=== PATIENT | male | born 1960 | race Caucasian/White ===

== ENCOUNTER 2019-12-03 16:54 | Emergency (ER) | payer SELFPAY ==
[~2019-12-03] VITALS: Ht 172.7 cm; Wt 78.0 kg
[2019-12-03 17:14] VITALS: BP 136/96
== END 2019-12-03 18:01 | disposition home or self-care (01) ==
LOC: ER 17:00
DX: S39.012A Strain of muscle, fascia and tendon of lower back, initial encounter (principal); V49.49XA Driver injured in collision with other motor vehicles in traffic accident, initial encounter; Y93.89 Activity, other specified; Y92.488 Other paved roadways as the place of occurrence of the external cause; Y99.8 Other external cause status

== ENCOUNTER 2024-11-12 12:48 | Emergency (ER) | payer MEDICAID ==
[~2024-11-12] VITALS: Ht 172.7 cm; Wt 67.1 kg
[2024-11-12 13:22] LABS: RED CELL DISTRIBUTION WIDTH 16.2 % (11.5-15.0)
[2024-11-12 13:25] LABS: PLATELET COUNT (AUTO) 533 K/uL (150-450); RED BLOOD CELL COUNT(AUTO) 3.33 MIL/uL (4.5-6.0); WHITE BLOOD COUNT (AUTO) 15.7 K/uL (4.3-11.0)
[2024-11-12] MEDS: IV NS 0.9% 1,000 ML BAG IV ONE (13:29)
[2024-11-12] MEDS: CEFEPIME 1 GM in IV D5W 50 ML IV ONE (13:29)
[2024-11-12 13:36] LABS: INR 1.26 (0.91-1.10)
[2024-11-12 13:37] LABS: LACTIC ACID 1.9 mmol/L (0.4-2.0)
[2024-11-12] MEDS ORDERED: ONDANSETRON HCL/PF 4 MG/2 ML VIAL ONE (13:39)
[2024-11-12 13:40] LABS: ASPARTATE AMINOTRANSFERASE 20 U/L (15-37); CREATININE 0.9 mg/dL (0.6-1.3); SODIUM SERUM 138 mmol/L (136-145); TOTAL PROTEIN, SERUM 7.7 g/dL (6.4-8.2); UREA NITROGEN, BLOOD 28 mg/dL (7-18)
[2024-11-12] MEDS ORDERED: MORPHINE SULFATE INJ 4 MG/ML DISP.SYRIN ONE (13:40)
[2024-11-12 13:43] LABS: CALCIUM, SERUM 13.0 mg/dL (8.5-10.1)
[2024-11-12] MEDS: VANCOMYCIN 1 GM in IV D5W 250 ML IV ONE (14:07)
[2024-11-12] MEDS: MORPHINE SULFATE INJ 2 MG/ML DISP.SYRIN IV ONE (14:08)
[2024-11-12] MEDS: ONDANSETRON HCL/PF 4 MG/2 ML VIAL IVP ONE (14:09)
[2024-11-12 14:16] LABS: ALCOHOL, BLOOD < 3 mg/dL (0-10)
[2024-11-12 16:29] LABS: APPEARANCE,URINE CLEAR (CLEAR); BLOOD, URINE Negative Ery/uL (NEGATIVE); LEUKOCYTE ESTERASE ,URINE Negative (NEGATIVE); UGLUCOSE Negative (NEGATIVE)
[2024-11-12 16:30] LABS: NITRITE, URINE NEGATIVE (NEGATIVE)
[2024-11-12 16:37] LABS: AMPHETAMINE, URINE NEGATIVE (NEGATIVE); BARBITURATE, URINE NEGATIVE (NEGATIVE); BENZODIAZEPINE, URINE NEGATIVE (NEGATIVE); CANNABINOID, URINE NEGATIVE (NEGATIVE); COCCAINE, URINE NEGATIVE (NEGATIVE); OPIATE, URINE POSITIVE (NEGATIVE)
[2024-11-12 18:04] VITALS: BP 110/74; TEMP 99; O2SAT 98
== END 2024-11-12 18:05 | disposition left against medical advice (07) ==
LOC: ER 12:50
DX: A41.9 Sepsis, unspecified organism (principal); C15.9 Malignant neoplasm of esophagus, unspecified; R00.2 Palpitations; G89.29 Other chronic pain; Z92.21 Personal history of antineoplastic chemotherapy; Z20.822 Contact with and (suspected) exposure to COVID-19
CPT/HCPCS: 99291; 96365; 96361; 96367; 96375; 93005 ×2; 71045; 70450; 84145; 85025; 80048; 87040 ×2; 87804; 83605; 80076; 81003; 36415; 84443; 84484 ×2; 85730; 82962; 87426; 80143; 80320; 80307; J2270; J3370; J2405; J7060; J7030; A4223; J0692; 87081-TC; 87086-TC; G0480

== ENCOUNTER 2024-12-09 08:07 | Inpatient (IN) | payer MEDICAID ==
[2024-12-09] VITALS (50 sets, daily range): BP systolic 55–107; BP diastolic 24–83; TEMP 99–99.6; O2SAT 86–100
[~2024-12-09] VITALS: Ht 165.1 cm; Wt 70.3 kg
[2024-12-09] MEDS ORDERED: PIPERACI/TAZO 3.375GM/D5W 50ML PB IV ONE (08:30)
[2024-12-09] MEDS: PIPERACILLIN /TAZOBACTAM 3.375 G in IV D5W 50 ML IV ONE (08:30)
[2024-12-09] MEDS ORDERED: ACETAMINOPHEN 650 MG/SUPP.RECT RC ONE (08:42)
[2024-12-09] MEDS ORDERED: METO50TA16 PO (08:45)
[2024-12-09] MEDS ORDERED: SERT25TA5 PO (08:45)
[2024-12-09] MEDS ORDERED: MORP15TA10 PO (08:45)
[2024-12-09] MEDS ORDERED: ACET-2030 PO (08:45)
[2024-12-09] MEDS: IV NS 0.9% 1,000 ML BAG IV ONE (09:00)
[2024-12-09] MEDS: ACETAMINOPHEN 650 MG/SUPP.RECT RC ONE (09:00)
[2024-12-09] MEDS: VANCOMYCIN 1 GM in IV D5W 250 ML IV ONE (09:00)
[2024-12-09] MEDS ORDERED: IV NS 0.9% 1,000 ML BAG IV ONE (09:00)
[2024-12-09] MEDS: PHENYLEPHRINE 50 MG in IV NS 0.9% 250 ML IV ONE (09:30)
[2024-12-09 09:32] LABS: LACTIC ACID 8.2 mmol/L (0.4-2.0)
[2024-12-09] MEDS: AZITHROMYCIN 500 MG in IV D5W 250 ML IV ONE (10:05)
[2024-12-09 10:30] LABS: PLATELET COUNT (AUTO) 211 K/uL (150-450); RED BLOOD CELL COUNT(AUTO) 3.43 MIL/uL (4.5-6.0); RED CELL DISTRIBUTION WIDTH 20.1 % (11.5-15.0); WHITE BLOOD COUNT (AUTO) 15.8 K/uL (4.3-11.0)
[2024-12-09 10:47] LABS: INR 1.52 (0.91-1.10)
[2024-12-09 10:48] LABS: ASPARTATE AMINOTRANSFERASE 39.0 U/L (15-37); CALCIUM, SERUM 11.9 mg/dL (8.5-10.1); CREATININE 2.6 mg/dL (0.6-1.3); TOTAL PROTEIN, SERUM 6.4 g/dL (6.4-8.2)
[2024-12-09 10:51] LABS: SODIUM SERUM 168.0 mmol/L (136-145); UREA NITROGEN, BLOOD 110.0 mg/dL (7-18)
[2024-12-09 11:16] LABS: BAND % (MANUAL) 3 % (0.0-5.0); LYMPHOCYTES % (MANUAL) 9 % (16-48); MONOCYTES % (MANUAL) 1 % (0-11.0); NEUTROPHILS % (MANUAL) 87 (42-76); PLATELET ESTIMATE ADEQUATE
[2024-12-09 11:21] LABS: APPEARANCE,URINE CLEAR (CLEAR); BLOOD, URINE NEGATIVE Ery/uL (NEGATIVE); LEUKOCYTE ESTERASE ,URINE NEGATIVE (NEGATIVE); NITRITE, URINE NEGATIVE (NEGATIVE); UGLUCOSE NEGATIVE (NEGATIVE)
[2024-12-09 11:26] LABS: ADD URINE CULTURE NO; SQUAMOUS EPITHELIAL CELL,UR None Seen /HPF (None Seen)
[2024-12-09] MEDS: IV D5/0.45 NACL 1,000 ML IV PRN (11:45)
[2024-12-09] MEDS ORDERED: DOSING PER PHARMACY-VANCOMYCIN IV XX PRN (12:00)
[2024-12-09] MEDS ORDERED: VANCOMYCIN 1 GM in IV D5W 250 ML IV ONE (12:00)
[2024-12-09] MEDS: IV D5/0.45 NACL 1,000 ML IV ONE (12:36)
[2024-12-09] MEDS ORDERED: HYDROCORTISONE SOD SUCCINATE 100 MG/2 ML VIAL ONE (12:38)
[2024-12-09] MEDS: HYDROCORTISONE SOD SUCCINATE 100 MG/2 ML VIAL IV ONE (12:45)
[2024-12-09] MEDS ORDERED: PIPERACILLIN /TAZOBACTAM 3.375 G in IV D5W 50 ML IV SCH (13:00)
[2024-12-09] MEDS ORDERED: ACETAMINOPHEN ES 500 MG TABLET PO PRN (13:30)
[2024-12-09] MEDS ORDERED: NOREPINEPHRINE 8 MG in IV NS 0.9% 250 ML IV PRN ×2 (14:00→15:30)
[2024-12-09] MEDS ORDERED: ONDANSETRON HCL/PF 4 MG/2 ML VIAL IVP PRN (14:00)
[2024-12-09] MEDS ORDERED: ACETAMINOPHEN 325 MG TABLET PO PRN (14:00)
[2024-12-09] MEDS ORDERED: ACETAMINOPHEN 650 MG/SUPP.RECT RC PRN (14:00)
[2024-12-09] MEDS: ZOSYN IVPB 2.25 G in IV D5W 50ml IV SCH (15:11)
[2024-12-09] MEDS: IV D5W 1,000 ML IV PRN (15:39)
[2024-12-09] MEDS: MORPHINE SULFATE INJ 4 MG/ML DISP.SYRIN IV PRN (16:05)
[2024-12-09] MEDS: PHENYLEPHRINE 50 MG in IV NS 0.9% 245 ML IV PRN (17:35)
[2024-12-09] MEDS ORDERED: PHENYLEPHRINE 100 MG in IV NS 0.9% 240 ML IV PRN (20:00)
[2024-12-10] VITALS (110 sets, daily range): BP systolic 45–181; BP diastolic 35–146; TEMP 98.3–98.9; O2SAT 92–100
[2024-12-10 05:25] LABS: PLATELET COUNT (AUTO) 179 K/uL (150-450); RED BLOOD CELL COUNT(AUTO) 3.08 MIL/uL (4.5-6.0); RED CELL DISTRIBUTION WIDTH 19.5 % (11.5-15.0); WHITE BLOOD COUNT (AUTO) 13.2 K/uL (4.3-11.0)
[2024-12-10 06:01] LABS: LACTIC ACID 3.0 mmol/L (0.4-2.0)
[2024-12-10 06:05] LABS: CALCIUM, SERUM 10.8 mg/dL (8.5-10.1); CREATININE 1.8 mg/dL (0.6-1.3); PHOSPHORUS 4.2 mg/dL (2.5-4.9)
[2024-12-10 06:09] LABS: IRON, SERUM 24.0 ug/dl (50-175)
[2024-12-10 06:22] LABS: SODIUM SERUM 163.0 mmol/L (136-145); UREA NITROGEN, BLOOD 86.0 mg/dL (7-18)
[2024-12-10] MEDS: SERTRALINE HCL 25 MG TABLET PO SCH (08:26)
[2024-12-10] MEDS: PANTOPRAZOLE 40 MG VIAL IV SCH (08:34)
[2024-12-10] MEDS: VANCOMYCIN 750 MG in IV D5W 250 ML IV SCH (08:34)
[2024-12-10] MEDS: POTASSIUM CL. PREMIX PERIPHER. 50 ML IV SCH (10:48)
[2024-12-11] VITALS (64 sets, daily range): BP systolic 87–123; BP diastolic 58–83; TEMP 97.8–98.4; O2SAT 87–100
[2024-12-11 05:09] LABS: PLATELET COUNT (AUTO) 154 K/uL (150-450); RED BLOOD CELL COUNT(AUTO) 2.96 MIL/uL (4.5-6.0); RED CELL DISTRIBUTION WIDTH 18.4 % (11.5-15.0); WHITE BLOOD COUNT (AUTO) 13.7 K/uL (4.3-11.0)
[2024-12-11 05:23] LABS: CALCIUM, SERUM 10.5 mg/dL (8.5-10.1); CREATININE 1.3 mg/dL (0.6-1.3); SODIUM SERUM 152 mmol/L (136-145); UREA NITROGEN, BLOOD 46 mg/dL (7-18)
[2024-12-11 05:41] LABS: PHOSPHORUS 3.1 mg/dL (2.5-4.9)
[2024-12-11 05:58] LABS: LACTIC ACID 3.3 mmol/L (0.4-2.0)
[2024-12-11] MEDS: POTASSIUM CL. PREMIX PERIPHER. 50 ML IV SCH (06:09)
[2024-12-11] MEDS ORDERED: Potassium Chloride 10 MEQ in IV D5W 1,000 ML IV PRN (08:30)
[2024-12-11] MEDS ORDERED: POTASSIUM CHLORIDE 10 MEQ/50 ML PREMIXED IVPB FOR PERIPHERAL LINE IV SCH ×2 (08:30→09:00)
[2024-12-11] MEDS ORDERED: POTASSIUM PHOSPHATE MM 15 MMOL in IV NS 0.9% 250 ML IV SCH (08:30)
[2024-12-11 09:43] LABS: LACTIC ACID REFLEX 2.6 mmol/L (0.4-1.9)
[2024-12-11] MEDS: IV NS 0.9% 250 ML IV PRN (21:44)
[2024-12-12] VITALS (97 sets, daily range): BP systolic 48–116; BP diastolic 23–84; TEMP 97.8–98.5; O2SAT 95–100
[2024-12-12 04:14] LABS: PLATELET COUNT (AUTO) 128 K/uL (150-450); RED BLOOD CELL COUNT(AUTO) 2.82 MIL/uL (4.5-6.0); RED CELL DISTRIBUTION WIDTH 18.7 % (11.5-15.0); WHITE BLOOD COUNT (AUTO) 15.8 K/uL (4.3-11.0)
[2024-12-12 04:41] LABS: CALCIUM, SERUM 11.2 mg/dL (8.5-10.1); CREATININE 1.0 mg/dL (0.6-1.3); PHOSPHORUS 2.6 mg/dL (2.5-4.9); SODIUM SERUM 150.0 mmol/L (136-145); UREA NITROGEN, BLOOD 24.0 mg/dL (7-18)
[2024-12-12 05:26] LABS: LACTIC ACID 1.8 mmol/L (0.4-2.0)
[2024-12-12] MEDS: POTASSIUM CL. PREMIX PERIPHER. 50 ML IV SCH (08:52)
[2024-12-13] VITALS (98 sets, daily range): BP systolic 84–122; BP diastolic 63–85; TEMP 98.2–99.6; O2SAT 95–100
[2024-12-13 04:15] LABS: PLATELET COUNT (AUTO) 132 K/uL (150-450); RED BLOOD CELL COUNT(AUTO) 2.89 MIL/uL (4.5-6.0); RED CELL DISTRIBUTION WIDTH 19.1 % (11.5-15.0); WHITE BLOOD COUNT (AUTO) 16.9 K/uL (4.3-11.0)
[2024-12-13 04:22] LABS: CALCIUM, SERUM 11.6 mg/dL (8.5-10.1); CREATININE 1.0 mg/dL (0.6-1.3); SODIUM SERUM 148.0 mmol/L (136-145); UREA NITROGEN, BLOOD 24.0 mg/dL (7-18)
[2024-12-13] MEDS ORDERED: DOSING PER PHARMACY-VANCOMYCIN IV XX PRN (09:00)
[2024-12-13] MEDS: POTASSIUM CHLORIDE 10 MEQ/50 ML PREMIXED IVPB FOR PERIPHERAL LINE IV ONE (09:38)
[2024-12-13] MEDS: Potassium Chloride 20 MEQ in IV D5W 1,000 ML IV SCH (09:38)
[2024-12-13] MEDS: VANCOMYCIN HCL 1.25 GM in IV D5W 250 ML IV SCH (11:06)
[2024-12-13] MEDS: JEVITY 1.2 CAL 1,000 ML BOTTLE GT PRN (12:09)
[2024-12-14] VITALS (92 sets, daily range): BP systolic 82–116; BP diastolic 59–78; TEMP 97.8–98.1; O2SAT 96–100
[2024-12-14 04:27] LABS: PLATELET COUNT (AUTO) 125 K/uL (150-450); RED BLOOD CELL COUNT(AUTO) 2.73 MIL/uL (4.5-6.0); RED CELL DISTRIBUTION WIDTH 18.8 % (11.5-15.0); WHITE BLOOD COUNT (AUTO) 14.4 K/uL (4.3-11.0)
[2024-12-14 05:13] LABS: ASPARTATE AMINOTRANSFERASE 34.0 U/L (15-37); CALCIUM, SERUM 11.2 mg/dL (8.5-10.1); CREATININE 0.8 mg/dL (0.6-1.3); PHOSPHORUS 1.9 mg/dL (2.5-4.9); SODIUM SERUM 146.0 mmol/L (136-145); TOTAL PROTEIN, SERUM 5.0 g/dL (6.4-8.2); UREA NITROGEN, BLOOD 19.0 mg/dL (7-18)
[2024-12-14] MEDS: PANTOPRAZOLE 40 MG/PACK PACK NG SCH (08:28)
[2024-12-14] MEDS: POTASSIUM PHOSPHATE MM 15 MMOL in IV NS 0.9% 250 ML IV SCH (10:29)
[2024-12-14 10:51] LABS: RHEUMATOID FACTOR SCREEN NEGATIVE (NEGATIVE)
[2024-12-14 12:43] LABS: FIBRINOGEN ACTIVITY 422.0 Mg/dL (213-485); INR 1.55 (0.91-1.10)
[2024-12-14] MEDS: PAMIDRONATE 90 MG in IV NS 0.9% 500 ML IV ONE (14:27)
[2024-12-15] VITALS (69 sets, daily range): BP systolic 62–98; BP diastolic 47–72; TEMP 97.9–98.8; O2SAT 94–98
[2024-12-15 04:39] LABS: PLATELET COUNT (AUTO) 128 K/uL (150-450); RED BLOOD CELL COUNT(AUTO) 2.67 MIL/uL (4.5-6.0); RED CELL DISTRIBUTION WIDTH 18.9 % (11.5-15.0); WHITE BLOOD COUNT (AUTO) 11.8 K/uL (4.3-11.0)
[2024-12-15 05:08] LABS: ASPARTATE AMINOTRANSFERASE 33.0 U/L (15-37); CALCIUM, SERUM 11.2 mg/dL (8.5-10.1); CREATININE 0.7 mg/dL (0.6-1.3); PHOSPHORUS 2.4 mg/dL (2.5-4.9); SODIUM SERUM 142.0 mmol/L (136-145); TOTAL PROTEIN, SERUM 4.9 g/dL (6.4-8.2); UREA NITROGEN, BLOOD 16.0 mg/dL (7-18)
[2024-12-15 05:20] LABS: FIBRINOGEN ACTIVITY 421.0 Mg/dL (213-485); INR 1.52 (0.91-1.10)
[2024-12-15 07:11] LABS: BASOPHILS % (MANUAL) 0 % (0.0-2.0); EOSINOPHILS % (MANUAL) 3 % (0-4); LYMPHOCYTES % (MANUAL) 12 % (16-48); MONOCYTES % (MANUAL) 4 % (0-11.0); NEUTROPHILS % (MANUAL) 81 (42-76); PLATELET ESTIMATE DECREASED
[2024-12-15 08:07] LABS: IMMUNOGLOBULIN A, SERUM 153 mg/dL (61-437); IMMUNOGLOBULIN M, SERUM 25 mg/dL (20-172)
[2024-12-15] MEDS: LORAZEPAM INJ 2 MG/ML VIAL IV PRN (10:40)
[2024-12-15 12:29] LABS: OCCULT BLOOD STOOL NEGATIVE (NEGATIVE)
[2024-12-15 13:07] LABS: *ANA ANTI-CENTROMERE B AB <0.2 AI (0.0-0.9); *ANA ANTI-DNA(DS) AB, QN <1 IU/mL (0-9); *ANA ANTI-JO-1 <0.2 AI (0.0-0.9); *ANA ANTICHROMATIN ANTIBODY <0.2 AI (0.0-0.9); *ANA RNP ANTIBODIES <0.2 AI (0.0-0.9); *ANA SJOGREN'S ANTI-SS-A <0.2 AI (0.0-0.9); *ANA SJOGREN'S ANTI-SS-B <0.2 AI (0.0-0.9); *ANAANTI-SCLERODERMA-70 AB <0.2 AI (0.0-0.9); *ANASMITH AB <0.2 AI (0.0-0.9)
[2024-12-15] MEDS: MORPHINE SULFATE PF DRIP 250 MG in IV D5W 240 ML IV PRN (19:45)
[2024-12-16] VITALS (22 sets, daily range): BP systolic 52–61; BP diastolic 38–47; TEMP 97.5–101.8; O2SAT 83–94
[2024-12-16 07:07] LABS: FOLIC ACID 6.5 ng/mL (>3.0)
[2024-12-16] MEDS: ACETAMINOPHEN 650 MG/SUPP.RECT RC PRN (20:14)
[2024-12-17 04:00] VITALS: BP 68/49; TEMP 99.4; O2SAT 91
[2024-12-17 07:30] VITALS: BP 70/64; TEMP 100; O2SAT 90
[2024-12-17 08:00] VITALS: BP 70/46; TEMP 100; O2SAT 90
[2024-12-17 10:07] LABS: PTH, INTACT <6 pg/mL (15-65)
[2024-12-17 12:00] VITALS: BP 70/46; TEMP 100; O2SAT 90
[2024-12-17] MEDS: KEY,NONCONTROL,TO KEEP IN PYXI 1 EA MC ONE (13:45)
[2024-12-17 16:00] VITALS: BP 53/38; TEMP 101.5; O2SAT 90
[2024-12-18 00:06] LABS: HEPATITIS B SURFACE AB (QUAL) Non Reactive (.)
== END 2024-12-17 19:50 | DRG 720 ==
LOC: ER 08:07 → ICU 12:05 → MEDSG1 12-16 20:54
PROVIDERS: ADMIT Internal Medicine; ATTEND Internal Medicine
DX: A41.9 Sepsis, unspecified organism (principal); J69.0 Pneumonitis due to inhalation of food and vomit; R65.21 Severe sepsis with septic shock; Z51.5 Encounter for palliative care; G93.41 Metabolic encephalopathy; E43 Unspecified severe protein-calorie malnutrition; N17.9 Acute kidney failure, unspecified; E87.20 Acidosis, unspecified; D61.818 Other pancytopenia; C78.01 Secondary malignant neoplasm of right lung; E83.39 Other disorders of phosphorus metabolism; C78.02 Secondary malignant neoplasm of left lung; C79.51 Secondary malignant neoplasm of bone; D63.8 Anemia in other chronic diseases classified elsewhere; E86.0 Dehydration; E87.0 Hyperosmolality and hypernatremia; R13.10 Dysphagia, unspecified; D64.9 Anemia, unspecified; Z66 Do not resuscitate; E83.52 Hypercalcemia; E87.6 Hypokalemia; E88.09 Other disorders of plasma-protein metabolism, not elsewhere classified; Z93.1 Gastrostomy status; C15.9 Malignant neoplasm of esophagus, unspecified; Z79.60 Long term (current) use of unspecified immunomodulators and immunosuppressants; E87.8 Other disorders of electrolyte and fluid balance, not elsewhere classified; R79.89 Other specified abnormal findings of blood chemistry; D68.9 Coagulation defect, unspecified; D69.6 Thrombocytopenia, unspecified
CPT/HCPCS: 36415; 71045-TC; 71250-TC; 80048-TC; 80053-TC; 80076-TC; 80202-TC; 81001; 82247-TC; 82248-TC; 82272-TC; 82306; 82378; 82533; 82607-TC; 82728-TC; 82784; 83540-TC; 83605-TC; 83735-TC; 83970; 84100-TC; 84155; 84165; 84439-TC; 84443-TC; 84484-TC; 85025-TC; 85027-TC; 85396; 85730-TC; 86225; 86235; 86334; 86431-TC; 86706; 86803; 87040-TC; 87081-TC; 87086-TC; 87340; 93307-TC; 94799-TC; 99082-TC; A4217; A4223; A6213; G0378; J0456; J1720; J2060; J2270; J2274; J2430; J2470; J2543; J3373; J3374; J3480; J3490; J7030; J7040; J7050; J7060; J7070